=== PATIENT | female | born 1990 | race Two or more races ===

== ENCOUNTER 2021-10-28 18:34 | Emergency (ER) | payer SELFPAY ==
[2021-10-28] MEDS ORDERED: Ondansetron 4 MG/2 ML SDV IVPUSH ONE (18:43)
[2021-10-28] MEDS ORDERED: Sodium Chloride 0.9% 10 ML Syringe FLUSH PRN (18:43)
[2021-10-28] MEDS ORDERED: Ketorolac 30 MG/ML SDV IVPUSH ONE (18:43)
[2021-10-28] MEDS ORDERED: Sodium Chloride 0.9% 1,000 ML IV SCH ×2 (18:45→20:30)
[2021-10-28 19:46] LABS: CHLORIDE,CL 105 mmol/L (98-107); SODIUM,NA 143 mmol/L (136-145)
--- NOTE | 2021-10-28 20:09 | EDM.PDOC ---
ED HPI GENERAL MEDICAL PROBLEM - General Chief Complaint: Abdominal Pain Stated Complaint: Abdominal Pain, Low back pain Time Seen by Provider: 10/28/21 18:34 Source of Information: Reports: Patient History Limitations: Reports: No Limitations - History of Present Illness INITIAL COMMENTS - FREE TEXT/NARRATIVE: Patient presents to the ED for left flank pain that is radiating to the left lower abdomen. It started today when she was up in [place] picking up her from [place] after an 11 day hospitalization for COVID 19. She has been quarantining and is negative on testing. She denies any previous pain like this. She felt urinary urgency with this pain. She is nauseated, not vomiting. no fevers or chills. Pain is stabbing and intermittant. She is just finishing with her menstrual cycle. Onset: Today, Gradual Duration: Getting Worse Abdominal Pain Pain Score (Numeric/FACES): 10 - Related Data Allergies Allergy/AdvReac Type Severity Reaction Status Date / Time No Known Allergies Allergy Verified 10/28/21 19:33 Home Meds: Home Meds Hydrocodone/Acetaminophen [HYDROcodone-Acetaminophen 5-325 MG] 1 each PO Q6H PRN #20 tab 10/28/21 [Rx] Ondansetron [Zofran ODT] 4 mg PO Q6H PRN #15 tab.dis 10/28/21 [Rx] Tamsulosin HCl [Flomax] 0.4 mg PO DAILY #5 cap.er.24h 10/28/21 [Rx] Past Medical History HEENT History: Reports: None, Impaired Vision Cardiovascular History: Reports: None. Denies: Arrhythmia, Blood Clots/VTE/DVT, Heart Murmur, High Cholesterol, Hypertension Respiratory History: Reports: None. Denies: Asthma, COPD, PE Gastrointestinal History: Reports: None. Denies: Chronic Constipation, Chronic Diarrhea, Gastritis, GERD, GI Bleed, Hepatitis, Inflammatory Bowel Disease, P ancreatitis, PUD Genitourinary History: Reports: STD (Chlamydia in 2011-treated). Denies: Chronic Renal Insuffiency, Renal Calculus, Urinary Incontinence, UTI, Recurrent PATIENT OFFICE REP History: Reports: None. Denies: Dysfunctional Uterine Bleeding, Endometriosis, Spontaneous Musculoskeletal History: Reports: None. Denies: Back Pain, Chronic, Fracture, Gout, Neck Pain, Chronic, Osteoarthritis, RA, SLE Neurological History: Reports: Headaches, Chronic, Migraines Endocrine/Metabolic History: Reports: None. Denies: Diabetes, Type I, Diabetes, Type II, Hypothyroidism, IDDM Hematologic History: Reports: None. Denies: Anemia, Blood Transfusion(s), Iron Deficiency Immunologic History: Reports: None. Denies: AIDS, HIV, SLE Oncologic (Cancer) History: Reports: None Dermatologic History: Reports: Other (See Below) Other Dermatologic History: Acne vulgaris - Infectious Disease History Infectious Disease History: Reports: Chicken Pox - Past Surgical History Female Surgical History: Reports: Section - Past Imaging History Past Imaging History: Reports: None, CAT Scan Social & Family History - Family History Endocrine/Metabolic: Reports: Diabetes, type II (Father), IDDM (Paternal grandmother, paternal great-grandmother) - Caffeine Use Caffeine Use: Reports: Soda (6 sodas per day). Denies: Coffee, Energy Drinks, Tea - Recreational Drug Use Recreational Drug Use: No Drug Use in Last 12 Months: No - Living Situation & Occupation Living situation: Reports: Single, with Family Occupation: Employed ED ROS GENERAL - Review of Systems Review Of Systems: See Below Constitutional: Reports: No Symptoms. Denies: Fever, Chills, Malaise, Weakness, Fatigue HEENT: Reports: No Symptoms. Denies: Nose Pain, Rhinitis, Throat Pain, Throat Swelling Respiratory: Reports: No Symptoms. Denies: Shortness of Breath, Cough Cardiovascular: Reports: No Symptoms. Denies: Chest Pain, Claudication, Dyspnea on Exertion GI/Abdominal: Reports: Abdominal Pain, Nausea : Reports: Flank Pain (left), Frequency, Urgency Musculoskeletal: Reports: No Symptoms Skin: Reports: No Symptoms Neurological: Reports: No Symptoms Psychiatric: Reports: No Symptoms ED EXAM, GI/ABD - Physical Exam Exam: See Below Exam Limited By: No Limitations General Appearance: Alert, Moderate Distress Eyes: Bilateral: EOMI Ears: Normal External Exam Nose: Normal Inspection Throat/Mouth: Normal Inspection, Normal Lips, Normal Voice Head: Atraumatic Neck: Normal Inspection Respiratory/Chest: No Respiratory Distress, Lungs Clear, Normal Breath Sounds, Chest Non-Tender Cardiovascular: Normal Peripheral Pulses, Regular Rate, Rhythm, No Edema, No Murmur GI/Abdominal Exam: Normal Bowel Sounds, Soft, No Organomegaly, Tender (left lower abdomen minimally). No: Rigid, Rebound Back Exam: Normal Inspection, CVA Tenderness (L) Extremities: Normal Inspection Neurological: Alert, Oriented, CN II-XII Intact, Normal Cognition, No Motor/Sensory Deficits Psychiatric: Other (anxious and in pain) Course - Vital Signs Last Recorded V/S: Last Vital Signs Temp 36.4 C 10/28/21 18:40 Pulse 74 10/28/21 19:00 Resp 21 H 10/28/21 19:00 BP 180/85 H 10/28/21 19:00 Pulse Ox 99 10/28/21 19:00 - Orders/Labs/Meds Orders: Active Orders 24 hr Category Date Time Status Peripheral IV Care [RC] . DIRECTED Care 10/28/21 18:43 Active Abdomen Pelvis wo Cont [CT] Stat Exams 10/28/21 19:36 Ordered CULTURE URINE [RM] Stat Lab 10/28/21 18:30 Received Sodium Chloride 0.9% [Normal Saline] 1,000 ml Med 10/28/21 18:45 Active IV ASDIRECTED Sodium Chloride 0.9% [Normal Saline] 1,000 ml Med 10/28/21 20:30 Active IV ASDIRECTED Sodium Chloride 0.9% [Saline Flush] Med 10/28/21 18:43 Active 10 ml FLUSH ASDIRECTED PRN Peripheral IV Insertion Adult [OM.PC] Routine Oth 10/28/21 18:43 Ordered Medication Orders Sodium Chloride (Normal Saline) 1,000 mls @ 999 mls/hr IV ASDIRECTED [facility] Last Admin: 10/28/21 19:20 Dose: 999 mls/hr Documented by: COXTAM Sodium Chloride (Normal Saline) 1,000 mls @ 999 mls/hr IV ASDIRECTED [facility] Last Admin: 10/28/21 20:36 Dose: 999 mls/hr Documented by: COXTAM Sodium Chloride (Sodium Chloride 0.9% 10 Ml Syringe) 10 ml FLUSH ASDIRECTED PRN PRN Reason: Keep Vein Open Labs: Laboratory Tests 10/28/21 10/28/21 10/28/21 Range/Units 18:30 19:19 19:19 WBC 11.5 H (4.0-10.2) K/uL RBC 5.07 (3.77-5.09) M/uL Hgb 14.2 (11.7-15.5) g/dL Hct 41.4 (34.0-46.0) % MCV 81.7 L (84.0-98.0) fL MCH 28.0 L (28.2-33.3) pg MCHC 34.3 (31.7-36.0) g/dL RDW 13.0 (11.2-14.1) % Plt Count 305 (150-350) K/uL Neut % (Auto) 72.1 (45.0-80.0) % Lymph % (Auto) 19.8 (10.0-50.0) % [place] % (Auto) 7.2 (2.0-14.0) % Eos % (Auto) 0.7 (0.0-5.0) % Baso % (Auto) 0.2 (0.0-2.0) % Neut # (Auto) 8.28 H (1.40-7.00) K/uL Lymph # (Auto) 2.27 (0.50-3.50) K/uL [place] # (Auto) 0.83 (0.00-1.00) K/uL Eos # (Auto) 0.08 (0.00-0.50) K/uL Baso # (Auto) 0.02 (0.00-0.20) K/uL Sodium 143 (136-145) mmol/L Potassium 3.5 (3.5-5.1) mmol/L Chloride 105 (98-107) mmol/L Carbon Dioxide 23.0 (21.0-32.0) mmol/L Anion Gap 15.0 (7-15) meq/L BUN 12 (7-18) mg/dL Creatinine 0.84 (0.51-1.17) mg/dL Est Cr Clr Drug Dosing TNP Estimated GFR (MDRD) > 60 mL/min Glucose 123 H (70-99) mg/dL Lactic Acid (0.4-2.0) mmol/L Calcium 9.3 (8.5-10.1) mg/dL Total Bilirubin 0.3 (0.2-1.0) mg/dL AST 23 (15-37) U/L ALT 31 (12-78) U/L Alkaline Phosphatase 81 (46-116) IU/L C-Reactive Protein < 0.2 (<=0.9) mg/dL Total Protein 7.7 (6.4-8.2) g/dL Albumin 4.0 (3.4-5.0) g/dL Lipase 100 (73-393) U/L HCG, Qual (NEGATIVE) Specimen Type Urincc Urine Color Yellow Urine Appearance Slightly cloudy Urine pH 7.0 (5.0-9.0) Ur Specific [place] 1.025 (1.005-1.030) Urine Protein 100 H (NEGATIVE) mg/dL Urine Glucose (UA) Negative (NEGATIVE) mg/dL Urine Ketones Negative (NEGATIVE) mg/dL Urine Occult Blood Large H (NEGATIVE) Urine Nitrite Negative (NEGATIVE) Urine Bilirubin Negative (NEGATIVE) Urine Urobilinogen 0.2 (0.2-1.0) E.U./dL Ur Leukocyte Esterase Trace H (NEGATIVE) Urine RBC 50-75 H /HPF Urine WBC 10-20 H /HPF Ur Epithelial Cells Moderate H /LPF Urine Bacteria Few (NONE TO FEW) /HPF 10/28/21 10/28/21 10/28/21 Range/Units 19:19 19:19 21:40 WBC (4.0-10.2) K/uL RBC (3.77-5.09) M/uL Hgb (11.7-15.5) g/dL Hct (34.0-46.0) % MCV (84.0-98.0) fL MCH (28.2-33.3) pg MCHC (31.7-36.0) g/dL RDW (11.2-14.1) % Plt Count (150-350) K/uL Neut % (Auto) (45.0-80.0) % Lymph % (Auto) (10.0-50.0) % [place] % (Auto) (2.0-14.0) % Eos % (Auto) (0.0-5.0) % Baso % (Auto) (0.0-2.0) % Neut # (Auto) (1.40-7.00) K/uL Lymph # (Auto) (0.50-3.50) K/uL [place] # (Auto) (0.00-1.00) K/uL Eos # (Auto) (0.00-0.50) K/uL Baso # (Auto) (0.00-0.20) K/uL Sodium (136-145) mmol/L Potassium (3.5-5.1) mmol/L Chloride (98-107) mmol/L Carbon Dioxide (21.0-32.0) mmol/L Anion Gap (7-15) meq/L BUN (7-18) mg/dL Creatinine (0.51-1.17) mg/dL Est Cr Clr Drug Dosing Estimated GFR (MDRD) mL/min Glucose (70-99) mg/dL Lactic Acid 3.7 H 0.9 (0.4-2.0) mmol/L Calcium (8.5-10.1) mg/dL Total Bilirubin (0.2-1.0) mg/dL AST (15-37) U/L ALT (12-78) U/L Alkaline Phosphatase (46-116) IU/L C-Reactive Protein (<=0.9) mg/dL Total Protein (6.4-8.2) g/dL Albumin (3.4-5.0) g/dL Lipase (73-393) U/L HCG, Qual Negative (NEGATIVE) Specimen Type Urine Color Urine Appearance Urine pH (5.0-9.0) Ur Specific [place] (1.005-1.030) Urine Protein (NEGATIVE) mg/dL Urine Glucose (UA) (NEGATIVE) mg/dL Urine Ketones (NEGATIVE) mg/dL Urine Occult Blood (NEGATIVE) Urine Nitrite (NEGATIVE) Urine Bilirubin (NEGATIVE) Urine Urobilinogen (0.2-1.0) E.U./dL Ur Leukocyte Esterase (NEGATIVE) Urine RBC /HPF Urine WBC /HPF Ur Epithelial Cells /LPF Urine Bacteria (NONE TO FEW) /HPF Meds: Medications Generic Name Dose Route Start Last Admin Trade Name Freq PRN Reason Stop Dose Admin Sodium Chloride 1,000 mls @ 999 mls/hr 10/28/21 18:45 10/28/21 19:20 Normal Saline IV 999 mls/hr ASDIRECTED ERIC Administration Sodium Chloride 1,000 mls @ 999 mls/hr 10/28/21 20:30 10/28/21 20:36 Normal Saline IV 999 mls/hr ASDIRECTED ERIC Administration Sodium Chloride 10 ml 10/28/21 18:43 Sodium Chloride 0.9% 10 Ml Syringe FLUSH ASDIRECTED PRN Keep Vein Open Discontinued Medications Generic Name Dose Route Start Last Admin Trade Name Franq PRN Reason Stop Dose Admin Hydromorphone HCl 0.5 mg 10/28/21 20:38 10/28/21 20:55 Hydromorphone 0.5 Mg/0.5 Ml Syringe IVPUSH 10/28/21 20:39 0.5 mg ONETIME ONE Administration Hydromorphone HCl 0.5 mg 10/28/21 21:34 Hydromorphone 0.5 Mg/0.5 Ml Syringe IVPUSH 10/28/21 21:35 ONETIME ONE Ketorolac Tromethamine 30 mg 10/28/21 18:43 10/28/21 19:20 Ketorolac 30 Mg/Ml Sdv IVPUSH 10/28/21 18:44 30 mg ONETIME ONE Administration Ondansetron HCl 4 mg 10/28/21 18:43 10/28/21 19:27 Ondansetron 4 Mg/2 Ml Sdv IVPUSH 10/28/21 18:44 4 mg ONETIME ONE Administration Tamsulosin HCl 0.4 mg 10/28/21 21:34 Tamsulosin 0.4 Mg Cap.Er PO 10/28/21 21:35 ONETIME ONE - Radiology Interpretation Free Text/Narrative:: ct abdomen and pelvis without iv contrast with a 4 mm stone in the distal left ureter, no hydronephrosis noted. multiple stones in both kidneys, no other findings. Discussed with radiology - Re-Assessments/Exams Free Text/Narrative Re-Assessment/Exam: IV fluids, zofran and toradol given. This helped her pain. She had blood in her urine, is having an little vaginal spotting. Will get a ct non contrast rsp protocol. patient is feeling better. 10/28/21 20:25 10/28/21 20:28 white count mildly elevated, lactic is 3.7 but normal crp and urine is without infection. will give another liter and recheck the lactic acid at 21:30 10/28/21 20:38 given dilaudid 0.5 mg ivp. will send with with scripts for nausea, flomax and hydrocodone, cautioned to come back for nausea, vomiting and fevers. close follow up with pcp. 10/28/21 21:35 second liter of fluid in , pain better with dilaudid. will give flomax and recheck lactic acid 10/28/21 22:04 lactic is normal, send home Departure - Departure Time of Disposition: 22:03 Disposition: Home, Self-Care 01 Condition: Good Clinical Impression: Renal colic on left side - Discharge Information Prescriptions: Tamsulosin HCl [Flomax] 0.4 mg PO DAILY #5 cap.er.24h Hydrocodone/Acetaminophen [HYDROcodone-Acetaminophen 5-325 MG] 1 each PO Q6H PRN #20 tab PRN Reason: Pain (Moderate 4-6) Ondansetron [Zofran ODT] 4 mg PO Q6H PRN #15 tab.dis PRN Reason: Nausea Instructions: Renal Colic, [id number], Dietary Guidelines to Help Prevent Kidney Stones Referrals: Dutch Reeves PA [Primary Care Provider] - Forms: ED Department Discharge Additional Instructions: You have a 4 mm kidney stone near the bladder on the left side. This will continue to hurt until it passes. Drink plenty of fluids to help with this. Take the nausea medication and pain medication to help but they will cause constipation. You need to take the flomax daily until gone or can stop if they pain resolves. Return to the Ed for fever, worsening pain or inability to take in fluids. otherwise follow up with PCP Sepsis Event Note (ED) - Focused Exam Vital Signs: Vital Signs Temp Pulse Resp BP Pulse Ox 10/28/21 19:00 74 21 H 180/85 H 99 10/28/21 18:40 36.4 C 76 28 H 182/105 H 99 - My Orders Last 24 Hours: My Active Orders 10/28/21 18:30 CULTURE URINE [RM] Stat 10/28/21 18:43 Peripheral IV Care [RC] . DIRECTED Sodium Chloride 0.9% [Saline Flush] 10 ml FLUSH ASDIRECTED PRN Peripheral IV Insertion Adult [OM.PC] Routine 10/28/21 18:45 Sodium Chloride 0.9% [Normal Saline] 1,000 ml IV ASDIRECTED 10/28/21 19:36 Abdomen Pelvis wo Cont [CT] Stat 10/28/21 20:30 Sodium Chloride 0.9% [Normal Saline] 1,000 ml IV ASDIRECTED - Assessment/Plan Last 24 Hours: My Active Orders 10/28/21 18:30 CULTURE URINE [RM] Stat 10/28/21 18:43 Peripheral IV Care [RC] . DIRECTED Sodium Chloride 0.9% [Saline Flush] 10 ml FLUSH ASDIRECTED PRN Peripheral IV Insertion Adult [OM.PC] Routine 10/28/21 18:45 Sodium Chloride 0.9% [Normal Saline] 1,000 ml IV ASDIRECTED 10/28/21 19:36 Abdomen Pelvis wo Cont [CT] Stat 10/28/21 20:30 Sodium Chloride 0.9% [Normal Saline] 1,000 ml IV ASDIRECTED
[2021-10-28] MEDS ORDERED: HYDROmorphone 0.5 MG/0.5 ML Syringe IVPUSH ONE ×2 (20:38→21:34)
[2021-10-28 20:43] VITALS: BP 180/85; PULSE 74
[2021-10-28] MEDS ORDERED: Tamsulosin 0.4 MG Cap.ER PO ONE (21:34)
== END 2021-10-28 22:30 | disposition home or self-care (01) ==
LOC: LL.ED 18:34
DX: N20.2 Calculus of kidney with calculus of ureter (principal)
CPT/HCPCS: 36415; 74176; 80053; 81001; 83605; 83690; 84703; 85025; 86140; 87086; 96374; 96375; 99284; 99284-25; A9270-GY; J1170; J1885; J2405; J7030